=== PATIENT | male | born 1975 | race Two or more races ===

== ENCOUNTER 2017-01-12 20:48 | Emergency (ER) | payer OTHER ==
[~2017-01-12] VITALS: Ht 172.7 cm; Wt 80.6 kg
[2017-01-12 20:49] VITALS: BP 144/88
== END 2017-01-12 22:54 | disposition home or self-care (01) ==
LOC: ED 22:48
DX: M25.572 Pain in left ankle and joints of left foot (principal); M79.662 Pain in left lower leg
CPT/HCPCS: 29515